=== PATIENT | female | born 1935 | race Caucasian/White ===

== ENCOUNTER 2018-03-28 18:38 | Inpatient (IN) | payer OTHER ==
[~2018-03-28] VITALS: Ht 165.1 cm; Wt 54.9 kg
[2018-03-28] VITALS (9 sets, daily range): BP systolic 135–161; BP diastolic 71–101
--- NOTE | ~2018-03-28 | EKG ---
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 : 1935 Requested By: Ilya Langston Order Number: [id number] MD: Ilya Langston Measurements Intervals [place] Rate: 62 P: 11 MA: 151 QRS: -52 QRSD: 184 T: 143 QT: 505 QTc: 513 Interpretive Statements Sinus rhythm Left atrial enlargement Left bundle branch block Baseline wander in lead(s) II,III,aVL,aVF,V1 Compared to ECG 03/28/2018 18:41:07 Sinus tachycardia no longer present Electronically Signed On 03-30-2018 9:20:31 CDT by Ilya Langston [email or web address] <ELECTRONICALLY SIGNED> By: Ilya Langston MD, FACC 03/30/1820 Ilya Langston MD, FAC /EPI
--- NOTE | ~2018-03-28 | EKG ---
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
--- NOTE | ~2018-03-28 | 2DMMODE ---
[facility] [place] [address] 2 D/M-MODE ECHOCARDIOGRAM Name: DUTCH JOE Room #: 239-P ADM IN M.R.#: [id number] Admission: 03/28/18 Attend Phys: Skinny Nye MD Discharge: Date of : 37 Date of Service: 03/29/18 1009 Report #: [id number] THIS REPORT FOR: //name// APPROVED REPORT Study performed: 03/29/2018 08:17:57 EXAM: Comprehensive 2D, Doppler, and color-flow Echocardiogram Patient Location: ICU Room #: 239 Status: routine BSA: 1.61 HR: 65 bpm BP: 129/55 mmHg Rhythm: NSR Other Information Study Quality: Good Indications Respiratory distress, CHF. Hx: CHF, NSTEMI 2D Dimensions RVDd: 42.67 mm IVSd: 13.00 (7-11mm) LVOT Diam: 20.50 (18-24mm) LVDd: 57.00 mm PWd: 13.00 (7-11mm) Ascending Ao: 38.13 (22-36mm) LVDs: 50.09 (25-40mm) Aortic Root: 34.49 mm Volumes Left Atrial Volume (Systole) Single Plane 4CH: 73.26 mL Single Plane 2CH: 71.46 mL Aortic Valve AoV Peak Wale.: 2.72 m/s AO Peak Gr.: 29.59 mmHg LVOT Max P.92 mmHg AO Mean Gr.: 18.67 mmHg AO V2 Mean: 2.06 m/s LVOT Max V: 0.99 m/s AO V2 VTI: 62.42 cm CARMELO Vmax: 1.20 cm2 Mitral Valve E/A Ratio: 0.6 MV Decel. Time: 169.[address] [facility] [place] [address] 2 D/M-MODE ECHOCARDIOGRAM Name: DUTCH JOE Room #: 239-P [facility] IN M.R.#: [id number] Admission: 03/28/18 Attend Phys: Skinny Nye MD Discharge: Date of : 37 Date of Service: 03/29/18 1009 Report #: [id number] MV E Max Wale.: 0.99 m/s MV A Wale.: 1.63 m/s MV PHT: 49.07 ms IVRT: 101.50 ms Pulmonary Valve PV Peak Wale.: 1.35 m/s PV Peak Gr.: 7.30 mmHg Pulmonary Vein P Vein S: 0.49 m/s P Vein A: 0.28 m/s P Vein D: 0.28 m/s P Vein A Dur.: 161.5 msec P Vein S/D Ratio: 1.75 Tricuspid Valve TR Peak Wale.: 2.60 m/s RAP Estimate: 5.00 mmHg TR Peak Gr.: 27.02 mmHg PA Pressure: 32.00 mmHg Left Ventricle Left ventricle is at the upper limits of normal. Mild concentric left ventricular hypertrophy. Left ventricular systolic function is severely decreased. LVEF 25%. Mild diastolic dysfunction is present (impaired relaxation pattern). Right Ventricle The right ventricle is normal size. The right ventricular systolic function is normal. Atria Left atrium is dilated. Right atrium is at the upper limits of normal. Aortic Valve Aortic valve is moderately calcified; mild-moderate stenosis. Trace aortic regurgitation. There is moderate valvular aortic stenosis. Calculated aortic valve area is 1.2 cm2 with maximum pressure gradient of 30 mmHg and mean pressure gradient of 19 mmHg. Mitral Valve Mild mitral annular calcification. Mild to moderate mitral regurgitation. Tricuspid Valve The tricuspid valve is normal in structure. Trace to mild tricuspid regurgitation. Estimated PAP is 30-35mmHg. [address] [place] [address] 2 D/M-MODE ECHOCARDIOGRAM Name: DUTCH JOE Room #: 239-P ADM IN [facility]#: [id number] Admission: 03/28/18 Attend Phys: Skinny Nye MD Discharge: Date of : 37 Date of Service: 03/29/18 1009 Report #: [id number] Pulmonic Valve The pulmonary valve is normal in structure. Mild pulmonic regurgitation. Great Vessels The aortic root is normal in size. The ascending aorta is borderline dilated. IVC is normal in size and collapses >50% with inspiration. Pericardium Trivial pericardial fluid noted anteriorly. Left and right pleural effusions noted. <Conclusion> Left ventricular systolic function is severely decreased. LVEF 25%. Mild diastolic dysfunction Aortic valve is moderately calcified; mild-moderate stenosis. Calculated aortic valve area is 1.2 cm2 with maximum pressure gradient of 30 mmHg and mean pressure gradient of 19 mmHg. Mild mitral annular calcification. Mild to moderate mitral regurgitation. Trace to mild tricuspid regurgitation. Estimated pulmonary artery pressure of 30-35mmHg. Trivial pericardial fluid noted anteriorly. <ELECTRONICALLY SIGNED> By: Ilya Langston MD, FACC 03/29/18 100 08 08 Ilya Langston MD, FACC /INF
[2018-03-28 18:56] LABS: ABSOLUTE NEUTROPHILS 4.1 thou/uL (1.4-8.2); BASOPHILS 0.5 % (0.0-2.0); EOSINOPHILS 2.8 % (0.0-3.0); HEMATOCRIT 40.4 % (37.0-47.0); HEMOGLOBIN 13.3 gm/dL (12.0-15.0); LYMPHOCYTES 39.5 % (24.0-44.0); MCH 29.9 pg (26.0-34.0); MCV 90.7 fL (80.0-100.0); MONOCYTES 6.4 % (1.0-8.0); PLATELET COUNT 270 thou/uL (150-400); POLYS 50.8 % (36.0-66.0); RBC 4.45 mil/uL (4.20-5.00); RDW 14.4 % (10.5-14.5); WBC 8.1 thou/uL (4.0-11.0)
[2018-03-28 19:06] LABS: CALCIUM 9.4 mg/dL (8.5-10.1); CREATININE 1.2 mg/dL (0.6-1.0); POTASSIUM 4.2 mmol/L (3.5-5.1)
[2018-03-28 19:07] LABS: BE(vivo) -2.9 mmol/L (-2 to +3); HCO3 24.4 mmol/L (22.0-26.0); PCO2 53.2 mmHg (35.0-45.0); PO2 149.9 mmHg (80.0-100.0); pH 7.279 (7.360-7.450); sO2 98.6 % (92.0-98.0)
[2018-03-28 19:11] LABS: APTT 24.1 Seconds (24.5-32.8); PROTIME 10.6 Seconds (9.3-11.4)
[2018-03-28 19:15] LABS: TROPONIN-I 0.06 ng/mL (<0.06)
[2018-03-29] VITALS (21 sets, daily range): BP systolic 89–150; BP diastolic 30–71
[2018-03-29 04:38] LABS: CALCIUM 8.6 mg/dL (8.5-10.1); CREATININE 0.9 mg/dL (0.6-1.0); POTASSIUM 4.2 mmol/L (3.5-5.1)
[2018-03-29 04:55] LABS: TROPONIN-I 0.14 ng/mL (<0.06)
[2018-03-30] VITALS (23 sets, daily range): BP systolic 90–151; BP diastolic 42–85
[2018-03-30 05:20] LABS: HEMATOCRIT 33.3 % (37.0-47.0); MCH 29.1 pg (26.0-34.0); MCHC 32.7 g/dL (28.0-37.0); MCV 88.9 fL (80.0-100.0); RBC 3.75 mil/uL (4.20-5.00); RDW 14.1 % (10.5-14.5); WBC 6.5 thou/uL (4.0-11.0)
[2018-03-30 05:34] LABS: CALCIUM 8.4 mg/dL (8.5-10.1); CREATININE 1.1 mg/dL (0.6-1.0)
[2018-03-30 05:52] LABS: POTASSIUM 4.2 mmol/L (3.5-5.1)
[2018-03-30 05:53] LABS: HEMOGLOBIN 10.9 gm/dL (12.0-15.0)
[2018-03-31] VITALS (26 sets, daily range): BP systolic 70–142; BP diastolic 33–65
[2018-03-31 04:10] LABS: ABSOLUTE RETIC COUNT 0.0464 10^6/uL; OBSERVED RETIC COUNT 1.16 % (0.6-2.6)
[2018-03-31 04:11] LABS: % SATURATION 17 % (20-39); IRON 46 ug/dL (50-170); TIBC 269 ug/dL (250-450)
[2018-03-31] MEDS ORDERED: CARVEDILOL3.125 MG PO (16:40)
[2018-03-31] MEDS ORDERED: ADULT LOW DOSE81 MG PO (16:40)
[2018-03-31] MEDS ORDERED: LASIX 20 MG TAB20 MG PO (16:40)
[2018-03-31] MEDS ORDERED: COZAAR 25 MG TA25 M1 PO (16:40)
[2018-03-31] MEDS ORDERED: LIPITOR 20 MG T20 M1 PO (16:40)
[2018-03-31] MEDS ORDERED: SPIRONOLACTONE25 M1 PO (16:40)
== END 2018-03-31 18:09 | disposition home health service (06) | DRG 871 ==
LOC: ER 18:38 → EROBS 20:05 → ICU 20:05 → EROBS 20:53 → ICU 21:30
PROVIDERS: Emergency Medicine; Hospitalist; Nurse Practitioner Family
PROC: 5A09357 Assistance with Respiratory Ventilation, Less than 24 Consecutive Hours, Continuous Positive Airway Pressure (ICD-10-PCS; principal; 2018-03-28)
PROC: 5A09357 Assistance with Respiratory Ventilation, Less than 24 Consecutive Hours, Continuous Positive Airway Pressure (ICD-10-PCS; 2018-03-29)
DX: A41.9 Sepsis, unspecified organism (principal); J96.01 Acute respiratory failure with hypoxia; J18.9 Pneumonia, unspecified organism; J96.02 Acute respiratory failure with hypercapnia; I50.23 Acute on chronic systolic (congestive) heart failure; J81.1 Chronic pulmonary edema; I42.9 Cardiomyopathy, unspecified; I11.0 Hypertensive heart disease with heart failure; I25.10 Atherosclerotic heart disease of native coronary artery without angina pectoris; I35.0 Nonrheumatic aortic (valve) stenosis; E78.5 Hyperlipidemia, unspecified; Z96.642 Presence of left artificial hip joint; M62.84 Sarcopenia; D64.9 Anemia, unspecified; Z23 Encounter for immunization; Z79.82 Long term (current) use of aspirin; Z79.899 Other long term (current) drug therapy; Z91.14 Patient's other noncompliance with medication regimen; Z90.49 Acquired absence of other specified parts of digestive tract
CPT/HCPCS: 10078